=== PATIENT | male | born 1975 | race Caucasian/White ===

== ENCOUNTER 2018-02-11 11:51 | Emergency (ER) | payer BC ==
[2018-02-11 12:50] LABS: Absolute Lymphocytes (CBC) 1.2 K/uL (0.7-4.9); Absolute Monocytes 1.2 K/uL (0.1-1.3); Absolute Neutrophil 11.3 K/uL (1.8-8.0); Basophils % 1.1 % (0-1.3); Eosinophils % 1.5 % (0-4.4); Hematocrit 50.7 % (39.6-49.0); Lymphocytes % 8.7 % (15.3-44.8); MCV 94.2 fL (80-100); MPV 9.3 fL (7.6-11.3); Monocytes % 8.7 % (3.3-12.3); RBC Red Blood Cell Count 5.38 M/uL (4.33-5.43)
[2018-02-11 12:56] LABS: Protime INR 1.1
[2018-02-11 13:19] LABS: Bicarbonate 24 mEq/L (21-31); Glucose Level 205 mg/dL (65-120); Potassium 3.8 mEq/L (3.6-5.0); Sodium Level 135 mEq/L (135-145)
[2018-02-11 13:26] LABS: ALT/SGPT 25 IU/L (10-60); AST/SGOT 17 IU/L (10-42); Albumin 4.3 g/dL (3.2-5.5); Alkaline Phosphatase 52 IU/L (42-121); BUN Blood Urea Nitrogen 18 mg/dL (6-20); Bilirubin Direct 0.1 mg/dL (0-0.2); Bilirubin Total 1.4 mg/dL (0.3-1.2); Protein, Total 7.7 g/dL (6.0-8.3)
[2018-02-11 13:47] LABS: Thyroid Stimulating Hormone 1.46 uIU/mL (0.34-5.60)
--- NOTE | 2018-02-11 14:12 | RAD REPORT ---
EXAM DESCRIPTION: Gagandeep Single View02/11/2018 1:55 pm CLINICAL HISTORY: Chest pain COMPARISON: October 2016 FINDINGS: The lungs appear clear of acute infiltrate. The heart is normal size IMPRESSION: No acute abnormalities displayed
--- NOTE | 2018-02-11 15:38 | EKG ---
Test Date: 2018-02-11 Test Time: 11:54:17 Sweeping Compound Blender: NEHEMIAH MEASUREMENT RESULTS: Intervals: Rate: 104 VA: 138 QRSD: 92 QT: 354 QTc: 465 [place]: P: 55 VA: 138 QRS: -47 T: 48 INTERPRETIVE STATEMENTS: Sinus tachycardia Left axis deviation Inferior infarct, age undetermined Possible Anterior infarct, age undetermined Abnormal ECG Compared to ECG 10/30/2016 16:34:55 Left-axis deviation now present Myocardial infarct finding now present Sinus rhythm no longer present Right-axis deviation no longer present Electronically Signed On 02-11-18 15:37:34 CDT by Alex Arellano
--- NOTE | 2018-02-11 15:43 | EDPHYS ---
Physician Documentation [facility] Name: Red Crockett Age: 42 yrs Sex: Male : 1975 Arrival Date: 02/11/2018 Time: 11:52 Bed 2 Private MD: ED Physician Tunde Ohara HPI: 02/11 15:33 This 42 yrs old Male presents to ER via EMS with complaints of Chest Pain > gs 30 y/o. 15:33 The patient or guardian reports chest pain that is located primarily in the anterior gs chest wall, right. Onset: acutely, just prior to arrival. The pain does not radiate. Associated signs and symptoms: Pertinent negatives: diaphoresis, shortness of breath. The chest pain is described as dull, feels on r side of neck and r scapular pain. Duration: The patient or guardian reports multiple episodes, that are intermittent, that wax and wane, with no pattern, the episodes last approximately 5 second(s). Modifying factors: The symptoms are alleviated by nothing. the symptoms are aggravated by nothing. Severity of pain: At its worst the pain was moderate in the emergency department the pain is unchanged. The patient has experienced similar episodes in the past, several times. Historical: - Allergies: 11:58 No Known Allergies; sg - Home Meds: 11:58 losartan oral oral [Active]; Metformin Oral [Active]; sg - PMHx: 11:58 Hernia; Diabetes - NIDDM; Hypertension; sg - PSHx: 11:58 Hernia repair; sg - Immunization history:: Adult Immunizations up to date. - Social history:: Smoking status: Patient uses tobacco products, smokes one pack cigarettes per day. ROS: 15:33 All other systems are negative. gs Exam: 15:33 Head/Face: Normocephalic, atraumatic. Eyes: Pupils equal round and reactive to light, gs extra-ocular motions intact. Lids and lashes normal. Conjunctiva and sclera are non-icteric and not injected. Cornea within normal limits. Periorbital areas with no swelling, redness, or edema. ENT: Nares patent. No nasal discharge, no septal abnormalities noted. Tympanic membranes are normal and external auditory canals are clear. Oropharynx with no redness, swelling, or masses, exudates, or evidence of obstruction, uvula midline. Mucous membranes moist. Neck: Trachea midline, no thyromegaly or masses palpated, and no cervical lymphadenopathy. Supple, full range of motion without nuchal rigidity, or vertebral point tenderness. No Meningismus. Chest/axilla: Normal chest wall appearance and motion. Nontender with no deformity. No lesions are appreciated. Respiratory: Lungs have equal breath sounds bilaterally, clear to auscultation and percussion. No rales, rhonchi or wheezes noted. No increased work of breathing, no retractions or nasal flaring. Abdomen/GI: Soft, non-tender, with normal bowel sounds. No distension or tympany. No guarding or rebound. No evidence of tenderness throughout. Back: No spinal tenderness. No costovertebral tenderness. Full range of motion. Skin: Warm, dry with normal turgor. Normal color with no rashes, no lesions, and no evidence of cellulitis. MS/ Extremity: Pulses equal, no cyanosis. Neurovascular intact. Full, normal range of motion. Neuro: Awake and alert, GCS 15, oriented to person, place, time, and situation. Cranial nerves II-XII grossly intact. Motor strength 5/5 in all extremities. Sensory grossly intact. Cerebellar exam normal. Normal gait. 15:33 Constitutional: The patient appears in no acute distress, alert, awake. 15:33 Cardiovascular: Rate: tachycardic, Rhythm: regular, Pulses: no pulse deficits are appreciated. 15:33 ECG was reviewed by the Attending Physician. Vital Signs: 11:55 BP 150 / 98; Pulse 114; Resp 18 S; Temp 97.7; Pulse Ox 96% on R/A; Weight 122.47 kg sg (R); Pain 2/10; 12:46 BP 160 / 102; Pulse 102; Resp 17 S; Pulse Ox 97% on R/A; sg 14:18 BP 141 / 96; Pulse 92 MON; Resp 16 S; Pulse Ox 99% on R/A; Pain 2/10; sg 14:59 BP 142 / 93; Pulse 92; Resp 20; Pulse Ox 100% ; sv MDM: 12:11 Patient medically screened. 15:33 Differential diagnosis: acute myocardial infarction, coronary artery disease chest wall gs pain. Data reviewed: vital signs. Response to treatment: the patient's symptoms have resolved after treatment, and as a result, I will discharge patient. 02/11 12:14 Order name: Basic Metabolic Panel; Complete Time: 13:59 02/11 12:14 Order name: CBC with Diff; Complete Time: 13:15 02/11 12:14 Order name: LFT's; Complete Time: 13:59 02/11 12:14 Order name: Magnesium; Complete Time: 13:59 02/11 12:14 Order name: PT-INR; Complete Time: 13:59 02/11 12:14 Order name: Troponin (emerg Dept Use Only); Complete Time: 13:59 02/11 12:14 Order name: XRAY Chest (1 view); Complete Time: 14:12 02/11 12:14 Order name: EKG; Complete Time: 12:15 02/11 12:14 Order name: Cardiac monitoring; Complete Time: 12:36 02/11 12:14 Order name: EKG - Nurse/Tech; Complete Time: 12:36 02/11 12:14 Order name: D-Dimer; Complete Time: 13:59 02/11 12:14 Order name: TSH; Complete Time: 13:59 02/11 14:36 Order name: Troponin I 02/11 14:37 Order name: Troponin I; Complete Time: 15:32 EDMS 02/11 12:14 Order name: IV Saline Lock; Complete Time: 12:36 02/11 12:14 Order name: Labs collected and sent; Complete Time: 12:36 02/11 12:14 Order name: O2 Per Protocol; Complete Time: 12:36 02/11 12:14 Order name: O2 Sat Monitoring; Complete Time: 12:36 gs EC:33 Rate is 104 beats/min. Rhythm is regular, Sinus tachycardia. NE interval is normal. QRS gs interval is normal. QT interval is normal. T waves are Flattened. Clinical impression: NSR w/ Non-specific ST/T Changes. Interpreted by me. Administered Medications: No medications were administered Point of Care Testing: Blood Glucose: 11:58 Blood Glucose: 170 mg/dL; sg Ranges: Critical Glucose Levels:Adult <50 mg/dl or >400 mg/dl <40 mg/dl or >180 mg/dl Disposition: 02/11/18 15:42 Discharged to Home. Impression: Chest pain, unspecified. - Condition is Stable. - Discharge Instructions: Nonspecific Chest Pain. - Prescriptions for Naprosyn 500 mg Oral Tablet - take 1 tablet by ORAL route 2 times per day take with food; 20 tablet. - Work release form, Medication Reconciliation Form, Thank You Letter, Antibiotic Education, Prescription Opioid Use form. - Follow up: Alex Arellano MD; When: Tomorrow. Signatures: Dispatcher [employer] EDSd Bailey RN RN sg Smirch, Shelby, RN RN ss Tunde Ohara MD MD
--- NOTE | 2018-02-11 15:43 | ER ---
Nurse's Notes [facility] Name: Red Crockett Age: 42 yrs Sex: Male : 1975 Arrival Date: 02/11/2018 Time: 11:52 Bed 2 Private MD: Diagnosis: Chest pain, unspecified Presentation: 02/11 11:53 Presenting complaint: EMS states: pt was sitting down at a table during a meeting at work, pt reports pain in the right side of his neck that radiates down into his right arm, back and chest, pain was a 10/10, given 1 nitro by EMS, pt reports pain down to a 2/10 after 0.4 Nitro SL. Transition of care: patient was not received from another setting of care. Onset of symptoms was February 09, 2018. Initial Sepsis Screen: Does the patient meet any 2 criteria? No. Patient's initial sepsis screen is negative. Does the patient have a suspected source of infection? No. Patient's initial sepsis screen is negative. Care prior to arrival: Medication(s) given: Nitroglycerin, 0.4 mg SL x 1, IV initiated. 20 GA, in the left antecubital area. 11:53 Method Of Arrival: EMS: [facility] sg 11:53 Acuity: CRISTIN 3 sg Historical: - Allergies: 11:58 No Known Allergies; sg - Home Meds: 11:58 losartan oral oral [Active]; Metformin Oral [Active]; sg - PMHx: 11:58 Hernia; Diabetes - NIDDM; Hypertension; sg - PSHx: 11:58 Hernia repair; sg - Immunization history:: Adult Immunizations up to date. - Social history:: Smoking status: Patient uses tobacco products, smokes one pack cigarettes per day. Screenin:00 Abuse screen: Denies threats or abuse. Denies injuries from another. Nutritional sg screening: No deficits noted. Tuberculosis screening: No symptoms or risk factors identified. Never had TB. Fall Risk None identified. Assessment: 12:00 General: Appears in no apparent distress. comfortable, well groomed, well developed, sg well nourished, Behavior is calm, cooperative, appropriate for age. Pain: Complains of pain in chest Pain radiates to chest, right arm and right sternocleidomastoid Quality of pain is described as aching. Pain: Pain began gradually. Neuro: Level of Consciousness is awake, alert, obeys commands, Oriented to person, place, time, situation, Literary Writer are equal bilaterally Moves all extremities. Full function Gait is steady, Speech is normal, Facial symmetry appears normal. Cardiovascular: Heart tones S1 S2 present Capillary refill is brisk in bilateral fingers Patient's skin is warm and dry. Chest pain quality is sharp, stabbing, is located in right anterior chest wall. Respiratory: Airway is patent Respiratory effort is even, unlabored, Respiratory pattern is regular, symmetrical, Breath sounds are clear Denies cough, shortness of breath labored breathing. GI: No signs and/or symptoms were reported involving the gastrointestinal system. : No signs and/or symptoms were reported regarding the genitourinary system. EENT: No signs and/or symptoms were reported regarding the EENT system. Derm: Skin is intact, is healthy with good turgor, Skin is moist, Skin is normal, Skin temperature is warm. Musculoskeletal: No signs and/or symptoms reported regarding the musculoskeletal system. 14:08 Reassessment: Patient appears in no apparent distress at this time. Patient and/or sg family updated on plan of care and expected duration. Pain level reassessed. Patient is alert, oriented x 3, equal unlabored respirations, skin warm/dry/pink. pt family requesting update on POC and the results at this time, notified, awaiting re evaulation by ED provider at this time. 14:20 Reassessment: Patient appears in no apparent distress at this time. Patient and/or sg family updated on plan of care and expected duration. Pain level reassessed. Patient is alert, oriented x 3, equal unlabored respirations, skin warm/dry/pink. at bedside reevaluating pt at this time, updating pt and pt family on results and POC. Vital Signs: 11:55 BP 150 / 98; Pulse 114; Resp 18 S; Temp 97.7; Pulse Ox 96% on R/A; Weight 122.47 kg sg (R); Pain 2/10; 12:46 BP 160 / 102; Pulse 102; Resp 17 S; Pulse Ox 97% on R/A; sg 14:18 BP 141 / 96; Pulse 92 MON; Resp 16 S; Pulse Ox 99% on R/A; Pain 2/10; sg 14:59 BP 142 / 93; Pulse 92; Resp 20; Pulse Ox 100% ; sv ED Course: 11:52 Patient arrived in ED. sg 11:53 Tunde Ohara MD is Attending Physician. gs 11:55 Triage completed. sg 11:59 Arm band placed on. sg 12:00 Patient has correct armband on for positive identification. Bed in low position. Call sg light in reach. residential monitor on. Pulse ox on. NIBP on. 12:00 Initial lab(s) drawn, by me, held in ED. Maintain EMS IV. Dressing intact. Good blood sg return noted. Site clean \T\ dry. Gauge \T\ site: 20 G LAC. IV is patent, is intact. Patient maintains SpO2 saturation greater than 95% on room air. 12:00 No provider procedures requiring assistance completed. sg 12:14 EKG done, by infrastructure technician. reviewed by Tunde Ohara MD. at1 12:36 Sd Ferraro, RN is Primary Nurse. sg 13:50 X-ray completed. Portable x-ray completed in exam room. Patient tolerated procedure sw well. 13:51 XRAY Chest (1 view) In Process Unspecified. EDMS 15:42 Alex Arellano MD is Referral Physician. gs 16:00 IV discontinued, intact, bleeding controlled, No redness/swelling at site. Pressure sg dressing applied. Administered Medications: No medications were administered Point of Care Testing: Blood Glucose: 11:58 Blood Glucose: 170 mg/dL; sg Ranges: Outcome: 15:42 Discharge ordered by MD. gs 16:00 Discharged to home ambulatory, with family. sg 16:00 Condition: good 16:00 Discharge instructions given to patient, Instructed on discharge instructions, follow up and referral plans. medication usage, safety practices, Demonstrated understanding of instructions, follow-up care, medications, Prescriptions given X 1. 16:03 Patient left the ED. Signatures: Dispatcher [employer] EDMN Shey Ansari RN RN Sd Ferraro RN RN Jaye Ramon RN RN Pura pavon, splitter machine EKG Tat1 Ira Ash Tunde Ohara MD MD
== END 2018-02-11 16:03 | disposition home or self-care (01) ==
LOC: ER 11:51
DX: R07.9 Chest pain, unspecified (principal); I10 Essential (primary) hypertension; E11.9 Type 2 diabetes mellitus without complications; F17.210 Nicotine dependence, cigarettes, uncomplicated
CPT/HCPCS: 36415; 71045; 80048; 80076; 82962; 83735; 84443; 84484; 85025; 85379; 85610; 93005; 99285

== ENCOUNTER 2018-02-22 19:37 | Inpatient (IN) | payer BC ==
[2018-02-22] MEDS ORDERED: NA CHLORIDE 0.9% 1,000 ML ONE (21:47)
[2018-02-22 21:53] LABS: Absolute Lymphocytes (CBC) 2.2 K/uL (0.7-4.9); Absolute Monocytes 0.7 K/uL (0.1-1.3); Absolute Neutrophil 6.4 K/uL (1.8-8.0); Basophils % 0.2 % (0-1.3); Eosinophils % 4.8 % (0-4.4); Hematocrit 45.9 % (39.6-49.0); Lymphocytes % 22.3 % (15.3-44.8); MCH 32.2 pg (27.0-35.0); MCV 92.7 fL (80-100); MPV 8.6 fL (7.6-11.3); Monocytes % 7.4 % (3.3-12.3); RBC Red Blood Cell Count 4.95 M/uL (4.33-5.43)
[2018-02-22 21:58] LABS: Protime INR 0.99
[2018-02-22 22:03] LABS: Bicarbonate 29 mEq/L (21-31); Glucose Level 137 mg/dL (65-120); Lipase 36 U/L (22-51); Potassium 4.1 mEq/L (3.6-5.0); Sodium Level 141 mEq/L (135-145)
[2018-02-22 22:09] LABS: ALT/SGPT 34 IU/L (10-60); AST/SGOT 22 IU/L (10-42); Albumin 4.1 g/dL (3.2-5.5); Alkaline Phosphatase 49 IU/L (42-121); BUN Blood Urea Nitrogen 15 mg/dL (6-20); Bilirubin Direct 0.1 mg/dL (0-0.2); Bilirubin Total 0.6 mg/dL (0.3-1.2); Creatine Phosphokinase 61 IU/L (22-269); Magnesium 1.9 mg/dL (1.8-2.5); Protein, Total 7.2 g/dL (6.0-8.3)
[2018-02-22 22:12] LABS: CKMB Creatine Kinase MB 0.8 ng/ml (0.3-4.0)
--- NOTE | 2018-02-22 22:44 | RAD REPORT ---
EXAM DESCRIPTION: RAD - Chest Single View - 02/22/2018 9:50 pm CLINICAL HISTORY: Abdominal pain, abdominal distention, GI bleed COMPARISON: February 11 TECHNIQUE: AP portable chest image was obtained 2144 hours . FINDINGS: Lungs are clear. Heart and vasculature are normal. No measurable pleural effusion and no p neumothorax. No gross bony abnormality seen. No acute aortic findings suspected. IMPRESSION: No acute cardiopulmonary process. No significant interval change.
[2018-02-22] MEDS ORDERED: METRONIDAZOLE 500mg IVPB 500 MG/100 ML BAG IV ONE (22:51)
[2018-02-22] MEDS ORDERED: CIPROFLOXACIN 400mg IV 400 MG/200 ML BAG IV ONE (22:51)
--- NOTE | 2018-02-22 23:12 | ER ---
Nurse's Notes [facility] Name: Rde Crockett Age: 42 yrs Sex: Male : 1975 Arrival Date: 02/22/2018 Time: 19:38 Bed 18 Private MD: Diagnosis: Abdominal tenderness;Gastrointestinal hemorrhage, unspecified-lower;Type 2 diabetes mellitus;Essential (primary) hypertension;Diverticular disease of intestine;Diverticulitis of large intestine without perforation or abscess with bleeding-transverse colon Presentation: 02/22 19:57 Presenting complaint: Patient states: I had a bright red, bloody BM about 30 minutes la1 ago. Pt denies any pain, denies vomiting. Transition of care: patient was not received from another setting of care. Onset of symptoms was February 22, 2018. Initial Sepsis Screen: Does the patient meet any 2 criteria? No. Patient's initial sepsis screen is negative. Does the patient have a suspected source of infection? No. Patient's initial sepsis screen is negative. Care prior to arrival: None. 19:57 Method Of Arrival: Ambulatory la1 19:57 Acuity: CRISTIN 3 la1 Historical: - Allergies: 19:56 No Known Allergies; la1 - Home Meds: 02/23 01:15 losartan Oral [Active]; Metformin Oral [Active]; lp1 - PMHx: 02/22 19:56 Diabetes - NIDDM; Hernia; Hypertension; la1 - Immunization history:: Adult Immunizations up to date. - Social history:: Smoking status: Patient uses tobacco products, smokes one pack cigarettes per day. - Family history:: not pertinent. Screenin:17 Abuse screen: Denies threats or abuse. Denies injuries from another. Nutritional lp1 screening: No deficits noted. Tuberculosis screening: No symptoms or risk factors identified. Fall Risk None identified. Assessment: 21:15 General: Appears in no apparent distress. Behavior is calm, cooperative, appropriate lp1 for age. Pain: Denies pain. Neuro: Level of Consciousness is awake, alert, obeys commands. Cardiovascular: Patient's skin is warm and dry. Rhythm is sinus rhythm. Respiratory: Respiratory effort is even, unlabored, Respiratory pattern is regular, symmetrical. GI: Abdomen is round non-distended, Bowel sounds present X 4 quads. Abd is soft and non tender X 4 quads. Reports rectal bleeding, bloody stool. : No signs and/or symptoms were reported regarding the genitourinary system. EENT: No signs and/or symptoms were reported regarding the EENT system. Derm: Skin is pink, warm \\T\\ dry. Derm: Musculoskeletal: Circulation, motion, and sensation intact. 21:33 Reassessment: Patient completed oral contrast at this time, CT aware. lp1 22:30 Reassessment: Patient is alert, oriented x 3, equal unlabored respirations, skin lp1 warm/dry/pink. Patient has episode of bloody stool at this time. 23:00 Reassessment: Patient is alert, oriented x 3, equal unlabored respirations, skin lp1 warm/dry/pink. Per patient's , "he had another episode of bleeding". 23:50 Reassessment: Patient is alert, oriented x 3, equal unlabored respirations, skin lp1 warm/dry/pink. Patient returned from CT at this time, aware of pending admission. 02/23 01:00 Reassessment: Patient appears in no apparent distress at this time. Patient and/or lp1 family updated on plan of care and expected duration. Pain level reassessed. Patient is alert, oriented x 3, equal unlabored respirations, skin warm/dry/pink. Vital Signs: 02/22 19:56 BP 149 / 98; Pulse 96; Resp 19; Temp 98.0; Pulse Ox 100% on R/A; Weight 120.2 kg; la1 Height 5 ft. 9 in. (175.26 cm); 21:16 BP 140 / 91; Pulse 82; Resp 15; Pulse Ox 97% on R/A; lp1 22:00 BP 137 / 95; Pulse 82; Resp 16; Pulse Ox 98% on R/A; lp1 23:00 BP 134 / 86; Pulse 78; Resp 18; Pulse Ox 98% on R/A; lp1 02/23 00:00 BP 130 / 82; Pulse 76; Resp 15; Pulse Ox 97% on R/A; lp1 01:00 BP 130 / 86; Pulse 70; Resp 16; Temp 98.2(O); Pulse Ox 98% on R/A; lp1 02/22 19:56 Body Mass Index 39.13 (120.20 kg, 175.26 cm) wv1 ED Course: 02/22 19:38 Patient arrived in ED. ds1 19:58 Triage completed. la1 19:58 Arm band placed on left wrist. la1 20:57 Gina Eldridge, BA is Primary Nurse. lp1 21:16 Angel Olivas MD is Attending Physician. joselito 21:17 Patient has correct armband on for positive identification. Placed in gown. Bed in low lp1 position. yard spotter on. Pulse ox on. NIBP on. 21:39 Initial lab(s) drawn, by wa, sent to lab. Inserted saline lock: 18 gauge in right cb2 forearm, using aseptic technique. Inserted saline lock: Blood collected. 21:50 XRAY Chest (1 view) In Process Unspecified. EDMS 21:50 X-ray completed. Portable x-ray completed in exam room. Patient tolerated procedure kc2 well. 21:51 EKG done, by ED staff, reviewed by Angel Olivas MD. cb2 22:48 Urine collected: clean catch specimen, adriano colored. cb2 23:11 Jas Gallegos MD is Hospitalizing Provider. joselito 23:11 Hospitalizing Provider role handed off by Jas Gallegos MD joselito 23:11 Eddie Costa MD is Hospitalizing Provider. [facility] 02/23 00:08 No provider procedures requiring assistance completed. Patient admitted, IV remains in lp1 place. Administered Medications: 02/22 21:50 Drug: NS 0.9% 1000 ml Route: IV; Rate: 1 bolus; Site: right forearm; lp1 02/23 01:12 Follow up: IV Status: Completed infusion lp1 02/22 22:57 Drug: Flagyl 500 mg Volume: 100 ml; Route: IVPB; Rate: 200 ml/hr; Infused Over: 30 lp1 mins; Site: right forearm; 02/23 00:22 Follow up: IV Status: Completed infusion lp1 00:22 Drug: Cipro 400 mg Volume: 200 ml; Route: IVPB; Infused Over: 60 mins; Site: right lp1 forearm; 01:21 Follow up: IV Status: Infusion continued upon admission lp1 01:12 Drug: Rocephin - (cefTRIAXone) 1 grams Route: IVPB; Infused Over: 30 mins; Site: right lp1 forearm; 01:21 Follow up: Response: No adverse reaction; IV Status: Completed infusion lp1 Point of Care Testing: Guaiac: 05/07 23:15 Stool Guaiac: Positive; Stool Hemoccult Control: Pass; joselito Outcome: 23:12 Decision to Hospitalize by Provider. [facility] 02/23 00:09 Condition: stable lp1 Instructed on the need for admit. 01:20 Admitted to Med/surg accompanied by nurse, via wheelchair, room 231, with chart, Report lp1 called to BA Mariscal 01:24 Patient left the ED. lp1 Signatures: Dispatcher [employer] EDMA Angel Olivas MD MD cha Sanford, Shahida ds1 Gina Eldridge, RN RN lp1 Ezekiel Villatoro RN RN Juana Granger 2 Frederic Chicas cb2 Corrections: (The following items were deleted from the chart) 00:09 02/22 23:50 Reassessment: Patient returned from CT at this time, aware of pending lp1 admission lp1
--- NOTE | 2018-02-22 23:13 | EDPHYS ---
Physician Documentation [facility] Name: Red Crockett Age: 42 yrs Sex: Male : 1975 Arrival Date: 02/22/2018 Time: 19:38 Bed 18 Private MD: ED Physician Angel Olivas HPI: 02/22 22:01 This 42 yrs old Male presents to ER via Ambulatory with complaints of Bloody joselito Stools. 22:01 The patient presents with abdominal pain in the left upper quadrant, abdominal joselito distention in the upper abdomen, in the lower abdomen. Onset: The symptoms/episode began/occurred just prior to arrival. The patient presents to the emergency department with rectal bleeding, a large amount. Onset: The symptoms/episode began/occurred just prior to arrival. Abdominal pain: none is appreciated. Modifying factors: The symptoms are alleviated by nothing, the symptoms are aggravated by nothing. Associated signs and symptoms: The patient has no apparent associated signs or symptoms. The symptoms do not radiate. Associated signs and symptoms: none. Historical: - Allergies: 19:56 No Known Allergies; la1 - Home Meds: 02/23 01:15 losartan Oral [Active]; Metformin Oral [Active]; lp1 - PMHx: 02/22 19:56 Diabetes - NIDDM; Hernia; Hypertension; la1 - Immunization history:: Adult Immunizations up to date. - Social history:: Smoking status: Patient uses tobacco products, smokes one pack cigarettes per day. - Family history:: not pertinent. ROS: 22:01 Constitutional: Negative for fever, chills, and weight loss, Eyes: Negative for injury, joselito pain, redness, and discharge, ENT: Negative for injury, pain, and discharge, Neck: Negative for injury, pain, and swelling, Cardiovascular: Negative for chest pain, palpitations, and edema, Respiratory: Negative for shortness of breath, cough, wheezing, and pleuritic chest pain, Back: Negative for injury and pain, : Negative for injury, bleeding, discharge, and swelling, MS/Extremity: Negative for injury and deformity, Skin: Negative for injury, rash, and discoloration, Neuro: Negative for headache, weakness, numbness, tingling, and seizure, Psych: Negative for depression, anxiety, suicide ideation, homicidal ideation, and hallucinations, Allergy/Immunology: Negative for hives, rash, and allergies, Endocrine: Negative for neck swelling, polydipsia, polyuria, polyphagia, and marked weight changes, Hematologic/Lymphatic: Negative for swollen nodes, abnormal bleeding, and unusual bruising. 22:01 Abdomen/GI: Positive for abdominal pain, of the left upper quadrant. Exam: 22:01 Constitutional: This is a well developed, well nourished patient who is awake, alert, joselito and in no acute distress. Head/Face: Normocephalic, atraumatic. Eyes: Pupils equal round and reactive to light, extra-ocular motions intact. Lids and lashes normal. Conjunctiva and sclera are non-icteric and not injected. Cornea within normal limits. Periorbital areas with no swelling, redness, or edema. ENT: Nares patent. No nasal discharge, no septal abnormalities noted. Tympanic membranes are normal and external auditory canals are clear. Oropharynx with no redness, swelling, or masses, exudates, or evidence of obstruction, uvula midline. Mucous membranes moist. Neck: Trachea midline, no thyromegaly or masses palpated, and no cervical lymphadenopathy. Supple, full range of motion without nuchal rigidity, or vertebral point tenderness. No Meningismus. Chest/axilla: Normal chest wall appearance and motion. Nontender with no deformity. No lesions are appreciated. Cardiovascular: Regular rate and rhythm with a normal S1 and S2. No gallops, murmurs, or rubs. Normal PMI, no JVD. No pulse deficits. Respiratory: Lungs have equal breath sounds bilaterally, clear to auscultation and percussion. No rales, rhonchi or wheezes noted. No increased work of breathing, no retractions or nasal flaring. Abdomen/GI: Soft, non-tender, with normal bowel sounds. No distension or tympany. No guarding or rebound. No evidence of tenderness throughout. Back: No spinal tenderness. No costovertebral tenderness. Full range of motion. Male : Normal genitalia with no discharge or lesions. Skin: Warm, dry with normal turgor. Normal color with no rashes, no lesions, and no evidence of cellulitis. MS/ Extremity: Pulses equal, no cyanosis. Neurovascular intact. Full, normal range of motion. Neuro: Awake and alert, GCS 15, oriented to person, place, time, and situation. Cranial nerves II-XII grossly intact. Motor strength 5/5 in all extremities. Sensory grossly intact. Cerebellar exam normal. Normal gait. Psych: Awake, alert, with orientation to person, place and time. Behavior, mood, and affect are within normal limits. Vital Signs: 19:56 BP 149 / 98; Pulse 96; Resp 19; Temp 98.0; Pulse Ox 100% on R/A; Weight 120.2 kg; la1 Height 5 ft. 9 in. (175.26 cm); 21:16 BP 140 / 91; Pulse 82; Resp 15; Pulse Ox 97% on R/A; lp1 22:00 BP 137 / 95; Pulse 82; Resp 16; Pulse Ox 98% on R/A; lp1 23:00 BP 134 / 86; Pulse 78; Resp 18; Pulse Ox 98% on R/A; lp1 05 00:00 BP 130 / 82; Pulse 76; Resp 15; Pulse Ox 97% on R/A; lp1 01:00 BP 130 / 86; Pulse 70; Resp 16; Temp 98.2(O); Pulse Ox 98% on R/A; lp1 02/22 19:56 Body Mass Index 39.13 (120.20 kg, 175.26 cm) la1 MDM: 02/22 21:16 Patient medically screened. [facility] 22:02 Data reviewed: vital signs, nurses notes, lab test result(s), EKG, radiologic studies, [facility] CT scan, plain films. 02/22 21:18 Order name: Basic Metabolic Panel; Complete Time: 22:[address] [facility] 02/22 21:18 Order name: BNP; Complete Time: 22:[address] [facility] 02/22 21:18 Order name: CBC with Diff; Complete Time: 22:[address] [facility] 02/22 21:18 Order name: Ckmb; Complete Time: 22:[address] [facility] 02/22 21:18 Order name: CPK; Complete Time: 22:[address] [facility] 02/22 21:18 Order name: LFT's; Complete Time: 22:[address] [facility] 02/22 21:18 Order name: Magnesium; Complete Time: 22:[address] [facility] 02/22 21:18 Order name: PT-INR; Complete Time: 22:[address] [facility] 02/22 21:18 Order name: Ptt, Activated; Complete Time: 22:[address] [facility] 02/22 21:18 Order name: Troponin (emerg Dept Use Only); Complete Time: 22:[address] [facility] 02/22 21:18 Order name: Lipase; Complete Time: 22:[address] [facility] 02/22 21:18 Order name: Stool Culture [facility] 02/22 21:18 Order name: Occult Blood [facility] 02/22 21:18 Order name: Fecal Leukocyte Stain [facility] 02/22 21:18 Order name: XRAY Chest (1 view); Complete Time: 23:[address] [facility] 02/22 21:18 Order name: EKG; Complete Time: 21:[address] [facility] 02/22 21:18 Order name: Cardiac monitoring; Complete Time: 21:[address] [facility] 02/22 21:18 Order name: EKG - Nurse/Tech; Complete Time: 21:[address] [facility] 02/22 21:18 Order name: IV Saline Lock; Complete Time: 21:[address] [facility] 02/22 21:18 Order name: Labs collected and sent; Complete Time: 21:[address] [facility] 02/22 21:18 Order name: Type And Screen; Complete Time: 00:[address] [facility] 02/22 21:18 Order name: Urine Culture [facility] 02/22 21:18 Order name: CT Abd/Pelvis - W/Contrast [facility] 02/22 22:50 Order name: Urine Dipstick--Ancillary (enter results); Complete Time: 00:47 [facility] 02/22 23:15 Order name: CONS Physician Consult [facility] 02/22 23:50 Order name: ABO/RH no charge; Complete Time: 00:47 [facility] 02/22 21:18 Order name: O2 Per Protocol; Complete Time: 21:[address] [facility] 02/22 21:18 Order name: O2 Sat Monitoring; Complete Time: 21:[address] [facility] 02/22 21:18 Order name: Urine Dipstick-Ancillary (obtain specimen); Complete Time: 22:[address] [facility] Administered Medications: 21:50 Drug: NS 0.9% 1000 ml Route: IV; Rate: 1 bolus; Site: right forearm; lp1 02/23 01:12 Follow up: IV Status: Completed infusion 1 02/22 22:57 Drug: Flagyl 500 mg Volume: 100 ml; Route: IVPB; Rate: 200 ml/hr; Infused Over: 30 lp1 mins; Site: right forearm; 02/23 00:22 Follow up: IV Status: Completed infusion lp1 00:22 Drug: Cipro 400 mg Volume: 200 ml; Route: IVPB; Infused Over: 60 mins; Site: right lp1 forearm; 01:21 Follow up: IV Status: Infusion continued upon admission lp1 01:12 Drug: Rocephin - (cefTRIAXone) 1 grams Route: IVPB; Infused Over: 30 mins; Site: right lp1 forearm; :21 Follow up: Response: No adverse reaction; IV Status: Completed infusion lp1 Point of Care Testing: Guaiac: 02/22 23:15 Stool Guaiac: Positive; Stool Hemoccult Control: Pass; joselito Disposition: 02/22/18 23:12 Hospitalization ordered by Eddie Costa for Inpatient Admission. Preliminary diagnosis are Abdominal tenderness, Gastrointestinal hemorrhage, unspecified - lower, Type 2 diabetes mellitus, Essential (primary) hypertension, Diverticular disease of intestine, Diverticulitis of large intestine without perforation or abscess with bleeding - transverse colon. - Bed requested for Telemetry/MedSurg (Inpatient). - Status is Inpatient Admission. lp1 - Condition is Fair. - Problem is new. - Symptoms have improved. UTI on Admission? No Signatures: Dispatcher [employer] EDMS Angel Olivas MD MD cha Pena, Laura, RN RN lp1 Ezekiel Villatoro RN RN la1 Carolann Arango RN RN cg Corrections: (The following items were deleted from the chart) 23:12 23:12 Hospitalization Ordered by Eddie Costa MD for Inpatient Admission. Preliminary joselito diagnosis is Abdominal tenderness; Gastrointestinal hemorrhage, unspecified - lower. Bed requested for Telemetry/MedSurg (Inpatient). Status is Inpatient Admission. Condition is Fair. Problem is new. Symptoms have improved. UTI on Admission? No. joselito 02/23 00:46 02/22 23:12 02/22/2018 23:12 Hospitalization Ordered by Eddie Costa MD for Inpatient joselito Admission. Preliminary diagnosis is Abdominal tenderness; Gastrointestinal hemorrhage, unspecified - lower; Type 2 diabetes mellitus; Essential (primary) hypertension. Bed requested for Telemetry/MedSurg (Inpatient). Status is Inpatient Admission. Condition is Fair. Problem is new. Symptoms have improved. UTI on Admission? No. joselito 02/23 01:02 00:46 02/22/2018 23:12 Hospitalization Ordered by Eddie Costa MD for Inpatient cg Admission. Preliminary diagnosis is Abdominal tenderness; Gastrointestinal hemorrhage, unspecified - lower; Type 2 diabetes mellitus; Essential (primary) hypertension; Diverticular disease of intestine; Diverticulitis of large intestine without perforation or abscess with bleeding - transverse colon. Bed requested for Telemetry/MedSurg (Inpatient). Status is Inpatient Admission. Condition is Fair. Problem is new. Symptoms have improved. UTI on Admission? No. joselito 01:24 01:02 02/22/2018 23:12 Hospitalization Ordered by Eddie Costa MD for Inpatient lp1 Admission. Preliminary diagnosis is Abdominal tenderness; Gastrointestinal hemorrhage, unspecified - lower; Type 2 diabetes mellitus; Essential (primary) hypertension; Diverticular disease of intestine; Diverticulitis of large intestine without perforation or abscess with bleeding - transverse colon. Bed requested for Telemetry/MedSurg (Inpatient). Status is Inpatient Admission. Condition is Fair. Problem is new. Symptoms have improved. UTI on Admission? No. cg
[2018-02-23 00:31] LABS: Urine Blood NEGATIVE (NEG); Urine Glucose 2+ (NEG); Urine Protein NEGATIVE (NEG)
[2018-02-23] MEDS ORDERED: CEFTRIAXONE/SWI 1gm 1 GM/10 ML SYR ONE (01:06)
[2018-02-23] MEDS ORDERED: ACETAMINOPHEN 500 MG TAB PO PRN (01:08)
[2018-02-23] MEDS ORDERED: ONDANSETRON 4 MG/2 ML VIAL IV PRN (01:08)
[2018-02-23] MEDS: NA CHLORIDE 0.9% 1,000 ML IV SCH ×3 (02:01→21:07)
--- NOTE | 2018-02-23 03:02 | P.PN ---
Date of Service: 02/22/18 Patient was seen and evaluated. Patient's primary care provider is Dr. Gallegos. Patient presented with lower GI bleeding. Patient denies any abdominal pain or nausea and vomiting. Patient states he has a history of diabetes which is managed by his PCP. Patient is clinically and hemodynamically stable. Patient' s CT scan apparently has shown diverticulitis. Will notify Dr. Gallegos in the morning regarding patient admission & discuss with him plan of care at that time.
[2018-02-23 08:06] LABS: Urine Appearance CLEAR; Urine Bilirubin NEGATIVE (NEG); Urine Blood NEGATIVE (NEG); Urine Color YELLOW; Urine Glucose 3+ (NEG); Urine Protein NEGATIVE (NEG); Urine Specific Gravity >=1.030 (1.005-1.030); Urine Urobilinogen 0.2 mg/dL (0.2-1.0); Urine pH 5.5 (5.0-7.0)
[2018-02-23 08:08] LABS: Urine Microscopic Reflex NO UMIC
--- NOTE | 2018-02-23 08:16 | RAD REPORT ---
EXAM DESCRIPTION: CTAbdomen Pelvis W Contrast - 02/23/2018 1:50 am CLINICAL HISTORY: Abdominal pain. COMPARISON: None. TECHNIQUE: Biphasic CT imaging of the abdomen and pelvis was performed with 100 ml non-ionic IV cont rast. All CT scans are performed using dose optimization technique as appropriate and may include automated exposure control or mA/KV adjustment according to patient size. FINDINGS: The lung bases are clear. The liver demonstrates diffuse fatty infiltration. The spleen, pancreas, adrenal glands and kidneys a re within normal limits. No bowel obstruction, free air, free fluid or abscess. Moderate diverticulosis coli is present. Mild pericolonic inflammatory changes seen about several diverticula in the transverse colon in the left u pper quadrant. The appendix is normal. No evidence of significant lymphadenopathy. Small fat contain ing inguinal hernias, greater on the left. No suspicious bony findings. IMPRESSION: Diffuse fatty liver. Mild short-segment area of acute diverticulitis suspected left upper quadrant transverse colon. No ab scess or other complicating factor seen.
--- NOTE | 2018-02-23 11:56 | EKG ---
Test Date: 2018-02-22 Test Time: 21:46:36 Pin Sorter And Bagger: HERMELINDA MEASUREMENT RESULTS: Intervals: Rate: 78 DC: 148 QRSD: 94 QT: 386 QTc: 440 [place]: P: 59 DC: 148 QRS: 3 T: 42 INTERPRETIVE STATEMENTS: Normal sinus rhythm Inferior infarct, age undetermined Anterior infarct, age undetermined Abnormal ECG Compared to ECG 02/11/2018 11:54:17 Sinus tachycardia no longer present Left-axis deviation no longer present Myocardial infarct finding still present Electronically Signed On 02-23-18 11:54:05 CDT by Alex Arellano
[2018-02-23] MEDS: METRONIDAZOLE 500mg IVPB 500 MG/100 ML BAG IV SCH (16:20)
[2018-02-23 16:39] LABS: Absolute Lymphocytes (CBC) 2.1 K/uL (0.7-4.9); Absolute Monocytes 0.7 K/uL (0.1-1.3); Absolute Neutrophil 5.8 K/uL (1.8-8.0); Basophils % 0.2 % (0-1.3); Eosinophils % 4.5 % (0-4.4); Hematocrit 40.9 % (39.6-49.0); Lymphocytes % 23.5 % (15.3-44.8); MCH 31.9 pg (27.0-35.0); MCV 93.9 fL (80-100); MPV 8.7 fL (7.6-11.3); Monocytes % 7.7 % (3.3-12.3); RBC Red Blood Cell Count 4.35 M/uL (4.33-5.43)
[2018-02-23] MEDS ORDERED: ZOLPIDEM TARTRATE 10 MG TABLET PO PRN (16:47)
--- NOTE | 2018-02-23 16:53 | P.HP ---
Certification for Inpatient Patient admitted to: Inpatient With expected LOS: >2 Midnights Patient will require the following post-hospital care: None Practitioner: I am a practitioner with admitting privileges, knowledge of patient current condition, hospital course, and medical plan of care. Services: Services provided to patient in accordance with Admission requirements found in Title 42 Section 412.3 of the Code of Federal Regulations Patient History Date of Service: 02/23/18 Primary Care Provider: Rosy Reason for admission: Lower GI bleed History of Present Illness: Patient is an office patient of [employer] with a history of htn,diabetes. He drinks 5-6 beers a night. The patient has been having some reflux problems. He was trying to get an Upper GI. However he was sent to cardiology for clearance. Had a stress test yesterday. He then started having painless bright red blood in his bowel movements. He did not complain of nausea, vomitting or diarrhea. Did not notice any clots. He came to the ER at that time. Ct scan showed acute diverticulitis and fatty liver infiltration. Allergies No Known Allergies Allergy (Verified 02/23/18 01:39) Home Medications: Dapagliflozin Propanediol [Farxiga] 10 mg PO DAILY 10/30/16 Losartan Potassium 50 mg PO DAILY 10/30/16 Metformin HCl [Glucophage] 1,000 mg PO DAILY 10/30/16 Pantoprazole [Protonix Tab] 40 mg PO DAILY 10/30/16 - Past Medical/Surgical History Has patient received pneumonia vaccine in the past: No Diabetic: Yes -: NIDDM -: Hernia -: HTN -: hernia repair - Family History Father -: Heart disease, Diabetes - Social History Smoking Status: Current every day smoker Alcohol use: Yes CD- Drugs: No Caffeine use: Yes Place of Residence: Home Review of Systems 10-point ROS is otherwise unremarkable Gastrointestinal: Melena Physical Examination - Vital Signs Temperature: 98.2 F Blood Pressure: 120/73 Pulse: 66 Respirations: 16 Pulse Ox (%): 97 - Physical Exam General: Alert, In no apparent distress HEENT: Atraumatic, PERRLA, Mucous membr. moist/pink, EOMI, Sclerae nonicteric Neck: Supple, 2+ carotid pulse no bruit, No LAD, Without JVD or thyroid abnormality Respiratory: Clear to auscultation bilaterally, Normal air movement Cardiovascular: Regular rate/rhythm, Normal S1 S2 Gastrointestinal: Normal bowel sounds, No tenderness Musculoskeletal: No tenderness Integumentary: No rashes Neurological: Normal gait, Normal speech, Normal strength at 5/5 x4 extr, Normal tone, Normal affect Lymphatics: No axilla or inguinal lymphadenopathy - Studies Laboratory Data (last 24 hrs) 02/22/18 21:35: PT 11.7, INR 0.99, APTT 32.4 02/22/18 21:35: WBC 9.8 D, Hgb 15.9, Hct 45.9, Plt Count 230 02/22/18 21:35: B-Natriuretic Peptide 17 02/22/18 21:35: Sodium 141, Potassium 4.1, BUN 15, Creatinine 0.80, Glucose 137 H, Magnesium 1.9, Total Bilirubin 0.6, AST 22, ALT 34, Alkaline Phosphatase 49, Lipase 36 Microbiology Data (last 24 hrs): 02/22/18 09:21 Stool Fecal Leukocyte Stain - Final Assessment and Plan - Problems (Diagnosis) (1) LGI bleed Onset Date: 02/23/18 Current Visit: Yes Status: Acute Plan: Most likely due to his diverticulosis. Will continue monitoring his hct. He is stable. However continues to bleed. The patient has no pain (2) Diabetes 1.5, managed as type 2 Current Visit: Yes Status: Acute Plan: Will check an a1c restart his home medications. Insulin sliding scale to cover (3) HTN (hypertension) Current Visit: Yes Status: Acute Plan: Stable continue home medications. Will adjust as necessary. Qualifiers: Hypertension type: essential hypertension Qualified Code(s): I10 - Essential (primary) hypertension (4) Alcoholism /alcohol abuse Current Visit: Yes Status: Acute Plan: patient denies any history of seizures or Delirium Tremens. His is in the room. States that he has not cut down on his drinking. Fatty liver on ct. Will check a pt/inr to check his liver function. Discharge Plan: Home Plan to discharge in: 48 Hours - Advance Directives Does patient have a Living Will: No Does patient have a Durable POA for Healthcare: No - Code Status/Comfort Care Code Status Assessed: No Code Status: Full Code Physician Review: Patient Assessed, Agree with Above Assessment and Plan Critical Care: No Time Spent Managing Pts Care (In Minutes): 45
[2018-02-23] MEDS: CIPROFLOXACIN 400mg IV 400 MG/200 ML BAG IV SCH (21:08)
[2018-02-24] MEDS: METRONIDAZOLE 500mg IVPB 500 MG/100 ML BAG IV SCH ×4 (02:20→22:13)
[2018-02-24 05:08] LABS: Absolute Lymphocytes (CBC) 2.2 K/uL (0.7-4.9); Absolute Monocytes 0.8 K/uL (0.1-1.3); Absolute Neutrophil 6.3 K/uL (1.8-8.0); Basophils % 1.1 % (0-1.3); Eosinophils % 4.9 % (0-4.4); Hematocrit 37.6 % (39.6-49.0); Lymphocytes % 22.3 % (15.3-44.8); MCH 31.6 pg (27.0-35.0); MCV 94.2 fL (80-100); MPV 8.2 fL (7.6-11.3); Monocytes % 7.8 % (3.3-12.3)
[2018-02-24 05:12] LABS: Protime INR 1.1
[2018-02-24 06:01] LABS: ALT/SGPT 26 IU/L (10-60); AST/SGOT 17 IU/L (10-42); Albumin 3.2 g/dL (3.2-5.5); Alkaline Phosphatase 38 IU/L (42-121); BUN Blood Urea Nitrogen 11 mg/dL (6-20); Bicarbonate 29 mEq/L (21-31); Bilirubin Total 0.8 mg/dL (0.3-1.2); Glucose Level 133 mg/dL (65-120); Magnesium 1.9 mg/dL (1.8-2.5); Phosphorus 3.6 mg/dL (2.5-4.3); Potassium 4.2 mEq/L (3.6-5.0); Protein, Total 5.5 g/dL (6.0-8.3); Sodium Level 139 mEq/L (135-145)
[2018-02-24] MEDS ORDERED: D50W 25 GM/50 ML SYRINGE IV PRN (08:31)
[2018-02-24] MEDS ORDERED: GLUCAGON 1 MG/VIAL IM PRN (08:31)
--- NOTE | 2018-02-24 08:55 | P.PN ---
Subjective Date of Service: 02/24/18 Primary Care Provider: Rosy Chief Complaint: Lower GI bleed Subjective: New changes (Patient has been having darker thicker blood in the stools. No pain) Review of Systems 10-point ROS is otherwise unremarkable Gastrointestinal: Melena Physical Examination - Vital Signs Temperature: 97.1 F Blood Pressure: 133/81 Pulse: 66 Respirations: 18 Pulse Ox (%): 97 - Physical Exam General: Alert, In no apparent distress HEENT: Atraumatic, PERRLA, EOMI Neck: Supple, JVD not distended Respiratory: Clear to auscultation bilaterally, Normal air movement Cardiovascular: Regular rate/rhythm, Normal S1 S2 Gastrointestinal: Normal bowel sounds, No tenderness Musculoskeletal: No tenderness Integumentary: No rashes Neurological: Normal speech, Normal tone, Normal affect Lymphatics: No axilla or inguinal lymphadenopathy - Studies Microbiology Data (last 24 hrs): 02/22/18 22:46 Clean Catch Urine Webb Count - Final <10,000 CFU/ML. 02/22/18 22:46 Clean Catch Urine - Final 02/22/18 09:21 Stool Fecal Leukocyte Stain - Final Assessment & Plan - Problems (Diagnosis) (1) LGI bleed Onset Date: 02/23/18 Current Visit: Yes Status: Acute Plan: Most likely due to his diverticulosis. Hemeglobin has dropped. Will not transfuse till he drops below 7. No symptoms (2) Diabetes 1.5, managed as type 2 Current Visit: Yes Status: Acute Plan: Will check an a1c restart his home medications. Insulin sliding scale to cover (3) HTN (hypertension) Current Visit: Yes Status: Acute Plan: Stable continue home medications. Will adjust as necessary. Qualifiers: Hypertension type: essential hypertension Qualified Code(s): I10 - Essential (primary) hypertension (4) Alcoholism /alcohol abuse Current Visit: Yes Status: Acute Plan: patient denies any history of seizures or Delirium Tremens. His is in the room. States that he has not cut down on his drinking. Fatty liver on ct. Will check a pt/inr to check his liver function. (5) Tobacco abuse Current Visit: Yes Status: Acute Plan: patient wants to go downstairs to smoke. Offered a nicotine patch. He does not want to discuss smoking cessation. Discharge Plan: Home Plan to discharge in: 48 Hours - Code Status/Comfort Care Code Status Assessed: No Code Status: Full Code Physician Review: Patient Assessed, Agree with Above Assessment and Plan Critical Care: No Time Spent Managing Pts Care (In Minutes): 25
[2018-02-24] MEDS ORDERED: HOME MED 1 EA UNK (Dapagliflozin Propanediol [Farxiga] 10 MG) PO SCH (09:00)
[2018-02-24] MEDS: CIPROFLOXACIN 400mg IV 400 MG/200 ML BAG IV SCH ×2 (10:35→22:13)
[2018-02-24] MEDS: PANTOPRAZOLE 40MG TABLET PO SCH (10:36)
[2018-02-24] MEDS: METFORMIN HCL 500 MG TAB PO SCH (10:36)
[2018-02-24] MEDS: NA CHLORIDE 0.9% 1,000 ML IV SCH ×2 (10:36→17:20)
[2018-02-24] MEDS: LOSARTAN POTASSIUM 50 MG TABLET PO SCH (10:36)
[2018-02-24] MEDS: INSULIN LISPRO 100 UNIT/1 ML SQ SCH ×2 (12:00→17:00)
[2018-02-24 15:47] LABS: Absolute Lymphocytes (CBC) 1.8 K/uL (0.7-4.9); Absolute Monocytes 0.7 K/uL (0.1-1.3); Absolute Neutrophil 7.2 K/uL (1.8-8.0); Basophils % 1.3 % (0-1.3); Eosinophils % 3.2 % (0-4.4); Hematocrit 39.4 % (39.6-49.0); Lymphocytes % 17.9 % (15.3-44.8); MCH 31.5 pg (27.0-35.0); MCV 92.5 fL (80-100); MPV 8.4 fL (7.6-11.3); Monocytes % 7.1 % (3.3-12.3); RBC Red Blood Cell Count 4.27 M/uL (4.33-5.43)
[2018-02-25] MEDS: NA CHLORIDE 0.9% 1,000 ML IV SCH (04:00)
[2018-02-25] MEDS: PANTOPRAZOLE 40MG TABLET PO SCH (07:50)
[2018-02-25] MEDS: LOSARTAN POTASSIUM 50 MG TABLET PO SCH (07:50)
[2018-02-25] MEDS: CIPROFLOXACIN 400mg IV 400 MG/200 ML BAG IV SCH (07:50)
[2018-02-25] MEDS: METFORMIN HCL 500 MG TAB PO SCH (07:50)
[2018-02-25] MEDS: METRONIDAZOLE 500mg IVPB 500 MG/100 ML BAG IV SCH (07:50)
[2018-02-25] MEDS: INSULIN LISPRO 100 UNIT/1 ML SQ SCH (08:00)
--- NOTE | 2018-02-25 11:51 | P.DS ---
Admission Date: 02/22/18 Discharge Date: 02/25/18 Primary Care Provider: Rosy Reason for Admission: Lower GI bleed - Problems (1) LGI bleed Onset Date: 02/23/18 Current Visit: Yes Status: Acute (2) Diabetes 1.5, managed as type 2 Current Visit: Yes Status: Acute (3) HTN (hypertension) Current Visit: Yes Status: Acute Qualifiers: Hypertension type: essential hypertension Qualified Code(s): I10 - Essential (primary) hypertension (4) Alcoholism /alcohol abuse Current Visit: Yes Status: Acute (5) Tobacco abuse Current Visit: Yes Status: Acute Brief History of Present Illness: Patient is an office patient of [employer] with a history of htn,diabetes. He drinks 5-6 beers a night. The patient has been having some reflux problems. He was trying to get an Upper GI. However he was sent to cardiology for clearance. Had a stress test yesterday. He then started having painless bright red blood in his bowel movements. He did not complain of nausea, vomitting or diarrhea. Did not notice any clots. He came to the ER at that time. Ct scan showed acute diverticulitis and fatty liver infiltration. Hospital Course: Patient was seen by Dr. Fu. Hb dropped. However stayed above 10. No need for transfusion. He is continuing to smoke. Wants to go home. Will have him follow up with myself and Dr. Lind Vital Signs/Physical Exam: Temp Pulse Resp BP Pulse Ox 98.2 F 77 20 119/65 97 02/25/18 08:00 02/25/18 08:00 02/25/18 08:00 02/25/18 08:00 02/25/18 08:00 General: Alert, In no apparent distress HEENT: Atraumatic, PERRLA, EOMI Neck: Supple, JVD not distended Respiratory: Clear to auscultation bilaterally, Normal air movement Cardiovascular: Regular rate/rhythm, Normal S1 S2 Gastrointestinal: Normal bowel sounds, No tenderness Musculoskeletal: No tenderness Integumentary: No rashes Neurological: Normal speech, Normal tone, Normal affect Lymphatics: No axilla or inguinal lymphadenopathy Laboratory Data at Discharge: WBC 10.2 K/uL (4.3-10.9) 02/24/18 15:28 Hgb 13.5 g/dL (13.6-17.9) L 02/24/18 15:28 Hct 39.4 % (39.6-49.0) L 02/24/18 15:28 Plt Count 240 K/uL (152-406) 02/24/18 15:28 PT 13.0 SECONDS (9.5-12.5) H 02/24/18 04:47 INR 1.10 02/24/18 04:47 APTT 32.0 SECONDS (24.3-36.9) 02/24/18 04:47 Sodium 139 mEq/L (135-145) 02/24/18 04:47 Potassium 4.2 mEq/L (3.6-5.0) 02/24/18 04:47 BUN 11 mg/dL (6-20) 02/24/18 04:47 Creatinine 0.81 mg/dL (0.61-1.24) 02/24/18 04:47 Glucose 133 mg/dL (65-120) H 02/24/18 04:47 Phosphorus 3.6 mg/dL (2.5-4.3) 02/24/18 04:47 Magnesium 1.9 mg/dL (1.8-2.5) 02/24/18 04:47 Total Bilirubin 0.8 mg/dL (0.3-1.2) 02/24/18 04:47 AST 17 IU/L (10-42) 02/24/18 04:47 ALT 26 IU/L (10-60) 02/24/18 04:47 Alkaline Phosphatase 38 IU/L (42-121) L 02/24/18 04:47 B-Natriuretic Peptide 17 pg/ml (<=100) 02/22/18 21:35 Lipase 36 U/L (22-51) 02/22/18 21:35 Home Medications: Dapagliflozin Propanediol [Farxiga] 10 mg PO DAILY 10/30/16 Losartan Potassium 50 mg PO DAILY 10/30/16 Metformin HCl [Glucophage] 1,000 mg PO DAILY 10/30/16 Pantoprazole [Protonix Tab] 40 mg PO DAILY 10/30/16 Diet: ADA Activity: Ad dallin Followup: Jas Gallegos MD [Primary Care Provider] - 1-2 Weeks (Call for appointment) Terry Willett MD [ACTIVE - CAN ADMIT] - 1 Week (Call for appointment) Physician Review: Patient Assessed, Agree with Above Assessment and Plan Time spent managing pt's care (in minutes): 35
== END 2018-02-25 10:45 | disposition home or self-care (01) | DRG 379 ==
LOC: ER 19:37 → ERHOLD 23:16 → 2ND 02-23 01:05
PROVIDERS: ADMIT Internal Medicine; ATTEND Internal Medicine
DX: K57.33 Diverticulitis of large intestine without perforation or abscess with bleeding (principal); E11.9 Type 2 diabetes mellitus without complications; I10 Essential (primary) hypertension; F10.20 Alcohol dependence, uncomplicated; F17.210 Nicotine dependence, cigarettes, uncomplicated
CPT/HCPCS: 36415; 71045; 74177; 80048; 80053; 80076; 81003; 82274; 82550; 82553; 82962; 83690; 83735; 83880; 84100; 84484; 85014; 85025; 85610; 85730; 86850; 86900; 86901; 87045; 87046; 87086; 87088; 89055; 93005; 96361; 96365; 96367; 96375; 99285; J0696; J0744; J7030; Q9967

== ENCOUNTER 2018-02-26 12:11 | Emergency (ER) | payer BC ==
[2018-02-26] MEDS ORDERED: NA CHLORIDE 0.9% 2,000 ML ONE (13:36)
[2018-02-26] MEDS ORDERED: CIPROFLOXACIN 400mg IV 400 MG/200 ML BAG IV ONE (13:37)
[2018-02-26] MEDS ORDERED: METRONIDAZOLE 500mg IVPB 500 MG/100 ML BAG IV ONE (13:37)
[2018-02-26 13:40] LABS: Absolute Lymphocytes (CBC) 1.9 K/uL (0.7-4.9); Absolute Monocytes 0.9 K/uL (0.1-1.3); Absolute Neutrophil 10.7 K/uL (1.8-8.0); Basophils % 0.9 % (0-1.3); Eosinophils % 2.5 % (0-4.4); Hematocrit 38.5 % (39.6-49.0); Lymphocytes % 13.4 % (15.3-44.8); MCH 31.6 pg (27.0-35.0); MCV 93.3 fL (80-100); MPV 8.7 fL (7.6-11.3); Monocytes % 6.2 % (3.3-12.3); RBC Red Blood Cell Count 4.12 M/uL (4.33-5.43)
[2018-02-26 13:44] LABS: Bicarbonate 25 mEq/L (21-31); Glucose Level 153 mg/dL (65-120); Lipase 32 U/L (22-51); Potassium 3.7 mEq/L (3.6-5.0); Sodium Level 135 mEq/L (135-145)
[2018-02-26 13:50] LABS: ALT/SGPT 67 IU/L (10-60); AST/SGOT 56 IU/L (10-42); Albumin 4.1 g/dL (3.2-5.5); Alkaline Phosphatase 44 IU/L (42-121); BUN Blood Urea Nitrogen 11 mg/dL (6-20); Bilirubin Direct 0.1 mg/dL (0-0.2); Bilirubin Total 0.8 mg/dL (0.3-1.2); Protein, Total 7.3 g/dL (6.0-8.3)
--- NOTE | 2018-02-26 14:00 | EDPHYS ---
Physician Documentation [facility] Name: Red Crockett Age: 42 yrs Sex: Male : 1975 Arrival Date: 02/26/2018 Time: 12:14 Bed 7 Private MD: Jas Gallegos ED Physician Angel Olivas HPI: 02/26 13:12 This 42 yrs old Male presents to ER via Ambulatory with complaints of Rectal joselito Bleeding. 13:12 The patient presents to the emergency department with bleeding from the rectum/anus. joselito Onset: The symptoms/episode began/occurred today. Context: the patient has no known special context relating to the rectal area complaint(s). Modifying factors: The symptoms are alleviated by remaining still, The symptoms are aggravated by nothing. Associate signs and symptoms: The patient has no apparent associated signs or symptoms. Historical: - Allergies: 12:25 No Known Allergies; aj - Home Meds: 12:25 losartan Oral [Active]; Metformin Oral [Active]; aj - PMHx: 12:25 Diabetes - NIDDM; Hernia; Hypertension; aj - Immunization history:: Adult Immunizations up to date. - Social history:: Smoking status: Patient uses tobacco products, smokes one pack cigarettes per day. ROS: 13:13 Constitutional: Negative for fever, chills, and weight loss, Eyes: Negative for injury, joselito pain, redness, and discharge, ENT: Negative for injury, pain, and discharge, Neck: Negative for injury, pain, and swelling, Cardiovascular: Negative for chest pain, palpitations, and edema, Respiratory: Negative for shortness of breath, cough, wheezing, and pleuritic chest pain, Back: Negative for injury and pain, : Negative for injury, bleeding, discharge, and swelling, MS/Extremity: Negative for injury and deformity, Skin: Negative for injury, rash, and discoloration, Neuro: Negative for headache, weakness, numbness, tingling, and seizure, Psych: Negative for depression, anxiety, suicide ideation, homicidal ideation, and hallucinations, Allergy/Immunology: Negative for hives, rash, and allergies, Endocrine: Negative for neck swelling, polydipsia, polyuria, polyphagia, and marked weight changes, Hematologic/Lymphatic: Negative for swollen nodes, abnormal bleeding, and unusual bruising. 13:13 Abdomen/GI: Positive for rectal bleeding. Exam: 13:13 Constitutional: This is a well developed, well nourished patient who is awake, alert, joselito and in no acute distress. Head/Face: Normocephalic, atraumatic. Eyes: Pupils equal round and reactive to light, extra-ocular motions intact. Lids and lashes normal. Conjunctiva and sclera are non-icteric and not injected. Cornea within normal limits. Periorbital areas with no swelling, redness, or edema. ENT: Nares patent. No nasal discharge, no septal abnormalities noted. Tympanic membranes are normal and external auditory canals are clear. Oropharynx with no redness, swelling, or masses, exudates, or evidence of obstruction, uvula midline. Mucous membranes moist. Neck: Trachea midline, no thyromegaly or masses palpated, and no cervical lymphadenopathy. Supple, full range of motion without nuchal rigidity, or vertebral point tenderness. No Meningismus. Chest/axilla: Normal chest wall appearance and motion. Nontender with no deformity. No lesions are appreciated. Cardiovascular: Regular rate and rhythm with a normal S1 and S2. No gallops, murmurs, or rubs. Normal PMI, no JVD. No pulse deficits. Respiratory: Lungs have equal breath sounds bilaterally, clear to auscultation and percussion. No rales, rhonchi or wheezes noted. No increased work of breathing, no retractions or nasal flaring. Back: No spinal tenderness. No costovertebral tenderness. Full range of motion. Male : Normal genitalia with no discharge or lesions. Skin: Warm, dry with normal turgor. Normal color with no rashes, no lesions, and no evidence of cellulitis. MS/ Extremity: Pulses equal, no cyanosis. Neurovascular intact. Full, normal range of motion. Neuro: Awake and alert, GCS 15, oriented to person, place, time, and situation. Cranial nerves II-XII grossly intact. Motor strength 5/5 in all extremities. Sensory grossly intact. Cerebellar exam normal. Normal gait. Psych: Awake, alert, with orientation to person, place and time. Behavior, mood, and affect are within normal limits. 13:13 Abdomen/GI: Inspection: distension, Bowel sounds: Palpation: nontender, in all quadrants, Liver: no appreciated palpable abnormalities, Hernia: not appreciated. Vital Signs: 12:25 BP 113 / 90; Pulse 109; Resp 19; Temp 97.8; Pulse Ox 99% on R/A; Weight 119.75 kg; aj Height 5 ft. 9 in. (175.26 cm); Pain 0/10; 13:01 BP 125 / 87; Pulse 103; Resp 16; Pulse Ox 97% ; Pain 0/10; jl7 13:30 BP 116 / 99; Pulse 106; Resp 16; Pulse Ox 99% ; jl7 13:52 BP 132 / 85; Pulse 95; Resp 16; Pulse Ox 99% ; jl7 14:45 BP 126 / 86; Pulse 96; Resp 16; Pulse Ox 99% ; Pain 0/10; jl7 12:25 Body Mass Index 38.99 (119.75 kg, 175.26 cm) aj MDM: 12:32 Patient medically screened. [facility] 02/26 13:11 Order name: Lipase; Complete Time: 13:57 [facility] 02/26 13:11 Order name: Basic Metabolic Panel; Complete Time: 13:57 [facility] 02/26 13:11 Order name: CBC with Diff; Complete Time: 13:57 [facility] 02/26 13:11 Order name: Creatinine for Radiology; Complete Time: 13:57 [facility] 02/26 13:11 Order name: Hepatic Function; Complete Time: 13:57 [facility] 02/26 13:11 Order name: IV Saline Lock; Complete Time: 13:25 [facility] 02/26 13:11 Order name: Labs collected and sent; Complete Time: 13:25 [facility] Administered Medications: 13:40 Drug: NS 0.9% 1000 ml Route: IV; Rate: 1 bolus; Site: left hand; [facility] 15:03 Follow up: IV Status: Completed infusion 13:45 Drug: Flagyl 500 mg Volume: 100 ml; Route: IVPB; Rate: 200 ml/hr; Infused Over: 30 jl7 mins; Site: left hand; 14:15 Follow up: Response: No adverse reaction; IV Status: Completed infusion 13:49 Drug: Cipro 400 mg Volume: 200 ml; Route: IVPB; Infused Over: 60 mins; Site: left hand; jl7 15:02 Follow up: Response: No adverse reaction; IV Status: Completed infusion 13:50 Drug: NS 0.9% 1000 ml Route: IV; Rate: 1 bolus; Site: left hand; jl7 15:02 Follow up: IV Status: Completed infusion jl7 14:31 Drug: Rocephin - (cefTRIAXone) 1 grams Route: IVPB; Infused Over: 30 mins; Site: left ae1 hand; 14:31 Follow up: IV Status: Completed infusion ae1 15:02 Follow up: Response: No adverse reaction jl7 Disposition: 02/26/18 13:59 Discharged to Home. Impression: Diverticulitis of large intestine without perforation or abscess without bleeding, Gastrointestinal hemorrhage, unspecified, Elevated white blood cell count. - Condition is Stable. - Discharge Instructions: Diverticulitis, Diverticulitis, [id number], Gastrointestinal Bleeding, [id number]. - Prescriptions for Bentyl 20 mg Oral Tablet - take 1 tablet by ORAL route every 6 hours As needed; 20 tablet. Flagyl 500 mg Oral Tablet - take 1 tablet by ORAL route every 6 hours for 10 days; 40 tablet. Cipro 500 mg Oral Tablet - take 1 tablet by ORAL route every 12 hours for 10 days; 20 tablet. - Medication Reconciliation Form, Thank You Letter, Antibiotic Education, Prescription Opioid Use form. - Follow up: Jas Gallegos; When: 1 - 2 days; Reason: Recheck today's complaints, Continuance of care, Re-evaluation by your physician. Follow up: Terry Willett; When: 2 - 3 days; Reason: Recheck today's complaints, Continuance of care, Re-evaluation by your physician. - Problem is new. - Symptoms have improved. Signatures: Dispatcher [employer] Pura Pagan RN RN aj Anderson, Corey, MD MD cha Elliott, Andrea, RN RN ae1 Rito Duckworth RN RN jl7 Corrections: (The following items were deleted from the chart) 15:04 13:59 02/26/2018 13:59 Discharged to Home. Impression: Diverticulitis of large jl7 intestine without perforation or abscess without bleeding; Gastrointestinal hemorrhage, unspecified; Elevated white blood cell count. Condition is Stable. Discharge Instructions: Diverticulitis, Diverticulitis, [id number], Gastrointestinal Bleeding, [id number]. Prescriptions for Bentyl 20 mg Oral Tablet - take 1 tablet by ORAL route every 6 hours As needed; 20 tablet, Flagyl 500 mg Oral Tablet - take 1 tablet by ORAL route every 6 hours for 10 days; 40 tablet, Cipro 500 mg Oral Tablet - take 1 tablet by ORAL route every 12 hours for 10 days; 20 tablet. and Forms are Medication Reconciliation Form, Thank You Letter, Antibiotic Education, Prescription Opioid Use. Follow up: Jas Gallegos; When: 1 - 2 days; Reason: Recheck today's complaints, Continuance of care, Re-evaluation by your physician. Follow up: Terry Willett; When: 2 - 3 days; Reason: Recheck today's complaints, Continuance of care, Re-evaluation by your physician. Problem is new. Symptoms have improved. joselito
--- NOTE | 2018-02-26 14:00 | ER ---
Nurse's Notes [facility] Name: Red Crockett Age: 42 yrs Sex: Male : 1975 Arrival Date: 02/26/2018 Time: 12:14 Bed 7 Private MD: Jas Gallegos Diagnosis: Diverticulitis of large intestine without perforation or abscess without bleeding;Gastrointestinal hemorrhage, unspecified;Elevated white blood cell count Presentation: 02/26 12:24 Presenting complaint: Patient states: Rectal bleeding that started again after aj discharge yesterday for diverticulitis. Told to come back to ER by Dr Gallegos. Transition of care: patient was not received from another setting of care. Onset of symptoms was February 26, 2018. Initial Sepsis Screen: Does the patient meet any 2 criteria? No. Patient's initial sepsis screen is negative. Does the patient have a suspected source of infection? No. Patient's initial sepsis screen is negative. Care prior to arrival: None. 12:24 Method Of Arrival: Ambulatory 12:24 Acuity: CRISTIN 3 Triage Assessment: 12:25 General: Appears in no apparent distress. comfortable, Behavior is calm, cooperative, aj appropriate for age. Pain: Denies pain. Neuro: Level of Consciousness is awake, alert, obeys commands, Oriented to person, place, time, situation, Appropriate for age. Respiratory: Airway is patent Respiratory effort is even, unlabored, Respiratory pattern is regular, symmetrical. GI: Reports rectal bleeding. Derm: Skin is intact, is healthy with good turgor, Skin is pink, warm \T\ dry. normal. Historical: - Allergies: 12:25 No Known Allergies; - Home Meds: 12:25 losartan Oral [Active]; Metformin Oral [Active]; aj - PMHx: 12:25 Diabetes - NIDDM; Hernia; Hypertension; aj - Immunization history:: Adult Immunizations up to date. - Social history:: Smoking status: Patient uses tobacco products, smokes one pack cigarettes per day. Screenin:01 Abuse screen: Denies threats or abuse. Denies injuries from another. Nutritional jl7 screening: No deficits noted. Tuberculosis screening: No symptoms or risk factors identified. Fall Risk IV access (20 points). Total Tinsley Fall Scale indicates No Risk (0-24 pts). Assessment: 12:45 General: Appears in no apparent distress. uncomfortable, Behavior is calm, cooperative, jl7 appropriate for age. Pain: Denies pain. Neuro: Level of Consciousness is awake, alert, obeys commands, Oriented to person, place, time, situation. Cardiovascular: Heart tones S1 S2 present Patient's skin is warm and dry. Respiratory: Airway is patent Respiratory effort is even, unlabored, Respiratory pattern is regular, symmetrical. GI: Reports rectal bleeding, Pt reports 3 bloody stools today. : No signs and/or symptoms were reported regarding the genitourinary system. EENT: No signs and/or symptoms were reported regarding the EENT system. Derm: Skin is pink, warm \T\ dry. Musculoskeletal: No signs and/or symptoms reported regarding the musculoskeletal system. 13:30 Reassessment: Patient appears in no apparent distress at this time. Patient and/or jl7 family updated on plan of care and expected duration. Pain level reassessed. 14:31 Reassessment: Patient appears in no apparent distress at this time. Patient and/or ae1 family updated on plan of care and expected duration. Pain level reassessed. IV medication still infusing. Patient denies pain at this time. Vital Signs: 12:25 BP 113 / 90; Pulse 109; Resp 19; Temp 97.8; Pulse Ox 99% on R/A; Weight 119.75 kg; aj Height 5 ft. 9 in. (175.26 cm); Pain 0/10; 13:01 BP 125 / 87; Pulse 103; Resp 16; Pulse Ox 97% ; Pain 0/10; jl7 13:30 BP 116 / 99; Pulse 106; Resp 16; Pulse Ox 99% ; jl7 13:52 BP 132 / 85; Pulse 95; Resp 16; Pulse Ox 99% ; jl7 14:45 BP 126 / 86; Pulse 96; Resp 16; Pulse Ox 99% ; Pain 0/10; jl7 12:25 Body Mass Index 38.99 (119.75 kg, 175.26 cm) ED Course: 12:14 Patient arrived in ED. mr 12:14 Jas Gallegos MD is Private Physician. mr 12:25 Triage completed. aj 12:25 Arm band placed on left wrist. Patient placed in an exam room. aj 12:32 Angel Olivas MD is Attending Physician. [facility] 12:37 Rito Duckworth RN is Primary Nurse. jl7 13:01 Patient has correct armband on for positive identification. Bed in low position. Call jl7 light in reach. Side rails up X 1. Pulse ox on. NIBP on. 13:01 Inserted saline lock: 20 gauge in left hand, using aseptic technique. Blood collected. jl7 13:59 Jas Gallegos MD is Referral Physician. [facility] 13:59 Terry Willett MD is Referral Physician. [facility] 15:03 No provider procedures requiring assistance completed. IV discontinued, intact, jl7 bleeding controlled, No redness/swelling at site. Pressure dressing applied. Administered Medications: 13:40 Drug: NS 0.9% 1000 ml Route: IV; Rate: 1 bolus; Site: left hand; jl7 15:03 Follow up: IV Status: Completed infusion jl7 13:45 Drug: Flagyl 500 mg Volume: 100 ml; Route: IVPB; Rate: 200 ml/hr; Infused Over: 30 jl7 mins; Site: left hand; 14:15 Follow up: Response: No adverse reaction; IV Status: Completed infusion jl7 13:49 Drug: Cipro 400 mg Volume: 200 ml; Route: IVPB; Infused Over: 60 mins; Site: left hand; jl7 15:02 Follow up: Response: No adverse reaction; IV Status: Completed infusion jl7 13:50 Drug: NS 0.9% 1000 ml Route: IV; Rate: 1 bolus; Site: left hand; jl7 15:02 Follow up: IV Status: Completed infusion jl7 14:31 Drug: Rocephin - (cefTRIAXone) 1 grams Route: IVPB; Infused Over: 30 mins; Site: left ae1 hand; 14:31 Follow up: IV Status: Completed infusion ae1 15:02 Follow up: Response: No adverse reaction jl7 Outcome: 13:[address] . [facility] 15:03 Discharged to home ambulatory. jl7 15:03 Condition: stable 15:03 Discharge instructions given to patient, Instructed on discharge instructions, follow up and referral plans. medication usage, Demonstrated understanding of instructions, follow-up care, medications, Prescriptions given X 3. 15:04 Patient left the ED. jl7 Signatures: Pura Charles RN RN aj Anderson, Corey, MD MD cha Rivera, Maria mr Elliott, Andrea, RN RN ae1 Rito Duckworth, RN RN jl7
[2018-02-26] MEDS ORDERED: CEFTRIAXONE/SWI 1gm 1 GM/10 ML SYR ONE (14:28)
== END 2018-02-26 15:04 | disposition home or self-care (01) ==
LOC: ER 12:11
DX: K57.32 Diverticulitis of large intestine without perforation or abscess without bleeding (principal); D72.829 Elevated white blood cell count, unspecified; K92.2 Gastrointestinal hemorrhage, unspecified; I10 Essential (primary) hypertension; E11.9 Type 2 diabetes mellitus without complications; F17.210 Nicotine dependence, cigarettes, uncomplicated
CPT/HCPCS: 36415; 80048; 80076; 83690; 85025; 96361; 96365; 96368; 96375; 99284; J0696; J0744; J7030